=== PATIENT | male | born 1990 | race Caucasian/White ===

== ENCOUNTER 2017-04-27 10:18 | Emergency (ER) | payer BC ==
[~2017-04-27] VITALS: Ht 172.7 cm; Wt 98.5 kg
[~2017-04-27 10:18] MED LIST: AUGMENTIN875 MG PO; BACTRIM,SEPT1 TABLET PO; COLACE100 MG PO; HYDROCODON-ACE1 EAC7 PO; MOTRIN800 MG PO; NAPROSYN500 MG PO; NO HOME MEDS; OMEPRAZOLE40 M1 PO; PRILOSEC10 MG PO; ZITHROMAX Z-PA250 MG PO; ZOFRAN ODT4 MG PO; ZOFRAN4 MG PO
[2017-04-27] MEDS ORDERED: FLEXERIL10 MG PO (11:56)
[2017-04-27] MEDS ORDERED: TORADOL10 MG PO (11:56)
[2017-04-27] MEDS ORDERED: LIDODERM 5% P1 PATCH TD (11:56)
[2017-04-27] MEDS ORDERED: PREDNISONE20 MG PO (11:56)
[2017-04-27 12:08] VITALS: BP 117/79
== END 2017-04-27 12:09 | disposition home or self-care (01) ==
LOC: EME 10:18
DX: M54.16 Radiculopathy, lumbar region (principal); F17.200 Nicotine dependence, unspecified, uncomplicated; Z87.19 Personal history of other diseases of the digestive system
CPT/HCPCS: 72100; 99281; 99284; J1885; J7512